=== PATIENT | female | born 1950 | race Caucasian/White ===

== ENCOUNTER 2021-09-14 09:11 | Outpatient (CLI) | payer MEDICARE, BC | END 2021-09-14 09:12 | disposition home or self-care (01) | LOC: BICMAMMO 09:11 | PROVIDERS: ATTEND Internal Medicine Rheumatology | DX: M81.0 Age-related osteoporosis without current pathological fracture (principal) | CPT/HCPCS: 77080 ==

== ENCOUNTER 2022-06-15 09:27 | Outpatient (CLI) | payer MEDICARE, BC | END 2022-06-15 09:28 | disposition home or self-care (01) | LOC: NM 09:27 | PROVIDERS: ATTEND Internal Medicine Gastroenterology | DX: R11.0 Nausea (principal); K59.09 Other constipation; K59.02 Outlet dysfunction constipation; Z86.010 Personal history of colon polyps | CPT/HCPCS: 78264; A9541 ==